=== PATIENT | male | born 1965 | race Caucasian/White ===

== ENCOUNTER 2017-01-24 14:44 | Emergency (ER) | payer OTHER, BC ==
[2017-01-24] MEDS ORDERED: KETOROLAC TROMETHAMINE 60 MG/2 ML VIAL IM ONE ×2 (15:30→15:55)
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
[2017-01-24 17:17] VITALS: BP 135/101
== END 2017-01-24 16:45 | disposition home or self-care (01) ==
LOC: ER 14:44
DX: S76.312A Strain of muscle, fascia and tendon of the posterior muscle group at thigh level, left thigh, initial encounter (principal); M19.90 Unspecified osteoarthritis, unspecified site; I10 Essential (primary) hypertension